=== PATIENT | male | born 1980 ===

== ENCOUNTER 2022-08-20 15:31 | Outpatient (CLI) | payer OTHER, SELFPAY ==
--- NOTE | ~2022-08-20 | CT_ITS ---
EXAMINATION: CT brain wo/w con DATE: 08/20/2022 15:58 INDICATION: Migraine headaches. HIV positive. TECHNIQUE: Computed tomography (CT) of the head was performed without and with 100 cc Omnipaque 350 i ntravenous contrast. The dose-length product was 1199.14 mGy-cm. Automated exposure control and itera tive reconstruction technique were employed. COMPARISON: CT dated 01/12/2017 FINDINGS: Brain parenchymal volume is normal for age. Normal tello-white differentiation. No ventricul omegaly or midline shift. Basilar cisterns are patent. There is a left posterior parietal craniotomy defect. Paranasal sinuses and mastoids are pneumatized. There are also surgical changes of the left t emporal and parietal skull. No abnormal contrast enhancement. No acute intracranial hemorrhage, infar ction, mass or mass effect. Midline sagittal images demonstrate a normal corpus callosum and craniove rtebral junction. IMPRESSION: 1. No acute intracranial abnormality. Reviewed, dictated and finalized at location L.
== END 2022-08-20 15:32 ==
DX: G43.909 Migraine, unspecified, not intractable, without status migrainosus (principal)
CPT/HCPCS: 70470; Q9967